=== PATIENT | female | born 1985 ===

== ENCOUNTER 2019-01-24 09:39 | Emergency (ER) | payer OTHER ==
[2019-01-24 09:46] VITALS: BP 126/51; PULSE 90; RESP 18; TEMP 97.5; O2SAT 100
[2019-01-24 09:47] VITALS: BMI 22.6
== END 2019-01-24 10:59 | disposition left against medical advice (07) ==
LOC: ED 09:39
DX: Z02.89 Encounter for other administrative examinations (principal); H53.8 Other visual disturbances
CPT/HCPCS: 81025; 82948; LWBS0